=== PATIENT | male | born 1995 | race Two or more races ===

== ENCOUNTER 2017-02-07 14:37 | Emergency (ER) | payer SELFPAY ==
--- NOTE | 2017-02-07 15:05 | EDM.PDOC ---
ED HPI GENERAL MEDICAL PROBLEM - General Chief Complaint: Upper Extremity Injury/Pain Stated Complaint: RIGHT SHOULDER PAIN Time Seen by Provider: 02/07/17 15:00 Source of Information: Reports: Patient History Limitations: Reports: No Limitations - History of Present Illness INITIAL COMMENTS - FREE TEXT/NARRATIVE: HISTORY AND PHYSICAL: []21-year-old male presenting with right shoulder pain History of Present Illness: []Was lifting a pipe yesterday and felt a "pop" to his right shoulder. He did not have pain when this happened. Today when trying to get up from bed he felt the pain and was having difficulty with stiffness and moving Review of Systems: As per history of present illness and below otherwise all systems reviewed and negative. Past medical history: As per history of present illness and as reviewed below otherwise noncontributory. Surgical history: As per history of present illness and as reviewed below otherwise noncontributory. Social history: No reported history of drug or alcohol abuse. Family history: As per history of present illness and as reviewed below otherwise noncontributory. Physical exam: Alert and oriented young man who states that he feels he is getting sick this alert answering questions appropriately in full sentences no shortness of breath HEENT: Atraumatic, normocehpalic, pupils reactive, negative for conjunctival pallor or scleral icterus, mucous membranes moist, throat clear, neck supple, nontender, trachea midline. Right tympanic membrane has erythema and bulging. Throat is erythematous Lungs: Clear to auscultation, breath sounds equal bilaterally, chest non tender. Heart: S1S2, regular, negative for clicks, rubs, or JVD. Abdomen: Soft, nondistended, nontender. Negative for masses or hepatossplenmegaly. Negative for costovertebral tenderness. Pelvis: Stable nontender. Genitourinary: Deferred. Rectal: Deferred Extremities: Atraumatic, negative for cords or calf pain. Tender just lateral of the shoulder blade and corded muscle is noted in the extending across the right shoulder blade, medial portion. Tender with palpation with arm extended out to the side he raises his arm to about 100 before pain starts. With arm extended forward he can raise his arm to about 95. Positive impingement sign. Neurovascular unremarkable. Neuro: Awake, alert, oriented. Cranial nerves II through XII unremarkable. Cerebellum unremarkable. Motor and sensory unremarkable throughout. Exam nonfocal. Diagnostics: [] Therapeutics: [] Impression: [Right shoulder pain Rotator cuff impingement] Plan: [discharged to home Diclofenac 75 mg twice a day #20 no refill Flexeril 10 mg 1 3 times a day when necessary muscle spasm #21 no refill Follow-up with your primary care provider ] Definitive disposition and diagnosis as appropriate pending reevaluation and review of above. Right Shoulder Pain Score (Numeric/FACES): 9 - Related Data Allergies Allergy/AdvReac Type Severity Reaction Status Date / Time No Known Allergies Allergy Verified 02/07/17 14:53 Home Meds: Home Meds Cyclobenzaprine [Flexeril] 10 mg PO TID PRN #21 tablet 02/07/17 [Rx] Diclofenac Sodium [IMW: Diclofenac Sodium] 75 mg PO .TWICE DAILY W MEALS #20 tab.ec 02/07/17 [Rx] Review of Systems - Review of Systems Review Of Systems: ROS reveals no pertinent complaints other than HPI. ED EXAM, GENERAL - Physical Exam Exam: See Below (See dictation) Course - Vital Signs Last Recorded V/S: Last Vital Signs Temp 36.4 C 02/07/17 14:50 Pulse 93 02/07/17 14:50 Resp 12 02/07/17 14:50 BP 142/81 H 02/07/17 14:50 Pulse Ox 99 02/07/17 14:50 Departure - Departure Time of Disposition: 15:05 Disposition: Home, Self-Care 01 Condition: Good Clinical Impression: Right shoulder pain Qualifiers: Chronicity: acute Qualified Code(s): M25.511 - Pain in right shoulder Rotator cuff injury Qualifiers: Encounter type: initial encounter Laterality: right Qualified Code(s): S46.001A - Unspecified injury of muscle(s) and tendon(s) of the rotator cuff of right shoulder, initial encounter - Discharge Information Prescriptions: Cyclobenzaprine [Flexeril] 10 mg PO TID PRN #21 tablet PRN Reason: Muscle Spasm Diclofenac Sodium [IMW: Diclofenac Sodium] 75 mg PO .TWICE DAILY W MEALS #20 tab.ec Referrals: PCP,None [Primary Care Provider] -
[2017-02-07 15:32] VITALS: BP 141/86
== END 2017-02-07 15:27 | disposition home or self-care (01) ==
LOC: MW.ED 14:37
DX: S46.001A Unspecified injury of muscle(s) and tendon(s) of the rotator cuff of right shoulder, initial encounter (principal); M25.811 Other specified joint disorders, right shoulder; Z79.899 Other long term (current) drug therapy; X50.0XXA Overexertion from strenuous movement or load, initial encounter
CPT/HCPCS: 99282; 99283

== ENCOUNTER 2017-07-20 16:08 | Emergency (ER) | payer MEDICAID ==
[2017-07-20] MEDS ORDERED: Albuterol/Ipratropium 3.0-0.5 MG/3 ML Neb Soln NEB ONE (16:41)
--- NOTE | 2017-07-20 16:45 | EDM.PDOC ---
ED HPI GENERAL MEDICAL PROBLEM - General Chief Complaint: Respiratory Problem Stated Complaint: TROUBLE BREATHING/CONGESTION/COUGH Time Seen by Provider: 07/20/17 16:34 - History of Present Illness INITIAL COMMENTS - FREE TEXT/NARRATIVE: HISTORY AND PHYSICAL: History of present illness: Patient is a 22-year-old male who was been around ill contacts and has had a three-day history of harsh cough productive of some phlegm sinus congestion and drainage sore throat body aches subjective fevers and chills but no nausea vomiting or diarrhea. He did not get his influenza shot this year and he is not a smoker. He has no history of pulmonary disease. Patient has not tried much [id number] for the symptoms. Review of systems: As per history of present illness and below otherwise all systems reviewed and negative. Past medical history: As per history of present illness and as reviewed below otherwise noncontributory. Surgical history: As per history of present illness and as reviewed below otherwise noncontributory. Social history: No reported history of drug or alcohol abuse. Family history: As per history of present illness and as reviewed below otherwise noncontributory. Physical exam: Gen.: Well-developed mildly overweight man who is nontoxic and vital signs were noted by me. He has a harsh bronchitic cough on my evaluation. HEENT: Atraumatic, normocephalic, pupils reactive, negative for conjunctival pallor or scleral icterus, mucous membranes moist, throat clear but there is erythema, there is slight anterior cervical adenopathy but no nuchal rigidity, neck supple, nontender, trachea midline. Lungs: Clear to auscultation with some coarse breath sounds and rhonchi bilaterally but no wheezing stridor or work of breathing, breath sounds equal bilaterally, chest nontender. Heart: S1S2, regular rate and rhythm no overt murmurs. Abdomen: Soft, nondistended, nontender. NABS. Pelvis: Deferred Genitourinary: Deferred. Rectal: Deferred. Extremities: Atraumatic, negative for cords or calf pain. Neurovascular unremarkable. Neuro: Awake, alert, oriented. Cranial nerves II through XII unremarkable. Cerebellum unremarkable. Motor and sensory unremarkable throughout. Exam nonfocal. Diagnostics: Influenza rapid strep chest x-ray Therapeutics: Duo neb spacer and spacer teaching Impression: Acute bronchitis, pharyngitis Definitive disposition and diagnosis as appropriate pending reevaluation and review of above. general Pain Score (Numeric/FACES): 5 - Related Data Allergies Allergy/AdvReac Type Severity Reaction Status Date / Time No Known Allergies Allergy Verified 07/20/17 16:40 Home Meds: Home Meds . [No Known Home Meds] 07/20/17 [History] Past Medical History - Past Health History Medical/Surgical History: Denies Medical/Surgical History - Infectious Disease History Infectious Disease History: Reports: Chicken Pox, Mumps Social & Family History - Tobacco Use Smoking Status *Q: Never Smoker - Caffeine Use Caffeine Use: Reports: Coffee, Energy Drinks - Recreational Drug Use Recreational Drug Use: Yes Drug Use in Last 12 Months: Yes Recreational Drug Type: Reports: Marijuana/Hashish ED ROS GENERAL - Review of Systems Review Of Systems: ROS reveals no pertinent complaints other than HPI. ED EXAM, GENERAL - Physical Exam Exam: See Below (See dictation) Course - Vital Signs Last Recorded V/S: Last Vital Signs Temp 36.9 C 07/20/17 16:41 Pulse 96 07/20/17 16:41 Resp 16 07/20/17 16:41 BP 137/72 07/20/17 16:41 Pulse Ox 98 07/20/17 16:41 - Orders/Labs/Meds Orders: Active Orders 24 hr Category Date Time Status RT Aerosol Therapy [RC] ASDIRECTED Care 07/20/17 16:42 Active Chest 2V [CR] Stat Exams 07/20/17 16:41 Taken CULTURE STREP A CONFIRMATION [RM] Stat Lab 07/20/17 16:59 Results STREP SCRN A RAPID W CULT CONF [RM] Stat Lab 07/20/17 16:59 Results Meds: Medications Discontinued Medications Generic Name Dose Route Start Last Admin Trade Name Freq PRN Reason Stop Dose Admin Albuterol/Ipratropium 3 ml 07/20/17 16:41 07/20/17 16:45 Duoneb 3.0-0.5 Mg/3 Ml NEB 07/20/17 16:42 3 ml ONETIME ONE Administration Departure - Departure Time of Disposition: 17:54 Disposition: Home, Self-Care 01 Condition: Good Clinical Impression: Acute bronchitis Qualifiers: Bronchitis organism: unspecified organism Qualified Code(s): J20.9 - Acute bronchitis, unspecified - Discharge Information Referrals: PCP,None [Primary Care Provider] - Forms: ED Department Discharge Additional Instructions: The following information is given to patients seen in the emergency department who are being discharged to home. This information is to outline your options for follow-up care. We provide all patients seen in our emergency department with a follow-up referral. The need for follow-up, as well as the timing and circumstances, are variable depending upon the specifics of your emergency department visit. If you don't have a primary care physician on staff, we will provide you with a referral. We always advise you to contact your personal physician following an emergency department visit to inform them of the circumstance of the visit and for follow-up with them and/or the need for any referrals to a consulting specialist. The emergency department will also refer you to a specialist when appropriate. This referral assures that you have the opportunity for followup care with a specialist. All of these measure are taken in an effort to provide you with optimal care, which includes your followup. Under all circumstances we always encourage you to contact your private physician who remains a resource for coordinating your care. When calling for followup care, please make the office aware that this follow-up is from your recent emergency room visit. If for any reason you are refused follow-up, please contact the [facility] emergency department at and ask to speak to the emergency department charge nurse. [facility] Primary care- Internal Medicine and Family [place] [phone] Please push hydration and use all medications as prescribed. You have been given albuterol via [employer] to use with your spacer, a Medrol Dosepak and cough medicine all the [employer]. Please push hydration and rest and use over- the-counter Tylenol or ibuprofen for fevers. Please call and follow-up with one of our providers in the clinic next few days for reevaluation and further care and return to ER as needed and as discussed - My Orders Last 24 Hours: My Active Orders 07/20/17 16:41 Chest 2V [CR] Stat 07/20/17 16:42 RT Aerosol Therapy [RC] ASDIRECTED 07/20/17 16:59 CULTURE STREP A CONFIRMATION [RM] Stat STREP SCRN A RAPID W CULT CONF [] Stat - Assessment/Plan Last 24 Hours: My Active Orders 07/20/17 16:41 Chest 2V [CR] Stat 07/20/17 16:42 RT Aerosol Therapy [RC] ASDIRECTED 07/20/17 16:59 CULTURE STREP A CONFIRMATION [RM] Stat STREP SCRN A RAPID W CULT CONF [RM] Stat
[2017-07-20 19:18] VITALS: BP 134/68
--- NOTE | 2017-07-21 07:56 | CR ---
EXAM DATE: 07/20/17 PATIENT'S AGE: 22 Patient: BRITTNY CAPELLAN Facility: [place], [place] Site . Site : 1995 Study: XRay Chest [id number]/4/2018 5:09:56 PM Ordering Physician: Eunice Shea Final Report: INDICATION: Shortness of breath. Cough. COMPARISON: None. FINDINGS: PA and lateral views of the chest were obtained. The cardiac silhouette and pulmonary vasculature are within normal limits. The lungs are clear bilaterally. IMPRESSION: No evidence of acute pulmonary disease. Dictated by Mario Loyola MD @ 07/20/2017 5:44:51 PM Dictated by: Mario Loyola MD @ 07/20/2017 17:45:06 (Electronic Signature) Report Signed by Proxy. [facility] CENTERBrinda
== END 2017-07-20 18:16 | disposition home or self-care (01) ==
LOC: MW.ED 16:08
DX: J20.9 Acute bronchitis, unspecified (principal); J02.9 Acute pharyngitis, unspecified
CPT/HCPCS: 71046; 71046-26; 87081; 87804; 87880; 94640; 99283; 99284-25

== ENCOUNTER 2017-10-06 15:16 | Emergency (ER) | payer BC, MEDICAID ==
[2017-10-06] MEDS ORDERED: Ketorolac 60 MG/2 ML SDV IM ONE (15:46)
--- NOTE | 2017-10-06 16:20 | CR ---
EXAMINATION: Lumbar spine HISTORY: Pain COMPARISON: None TECHNIQUE: 3 views FINDINGS: The lumbar spinal alignment is normal. The vertebral body heights and disc spaces appear we ll-maintained. There is no fracture or acute osseous abnormality. Bone mineralization is normal. The SI joints are symmetric. IMPRESSION: No acute osseous abnormalities identified.
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
[2017-10-06 19:19] VITALS: BP 124/68
== END 2017-10-06 16:50 | disposition home or self-care (01) ==
LOC: MW.ED 15:16
DX: M62.830 Muscle spasm of back (principal); F17.210 Nicotine dependence, cigarettes, uncomplicated
CPT/HCPCS: 72100; 96372; 99283; J1885; 99282

== ENCOUNTER 2018-01-17 18:44 | Emergency (ER) | payer BC ==
[2018-01-17] MEDS ORDERED: Diphtheria,Pertussis(Acell),Tetanus Vaccine 0.5 ML Syringe IM ONE (18:46)
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
[2018-01-17] MEDS ORDERED: HYDROmorphone 1 MG/ML Syringe ONE (19:12)
[2018-01-17] MEDS ORDERED: HYDROmorphone 1 MG/ML Syringe IVPUSH ONE (19:14)
[2018-01-17 19:20] LABS: CHLORIDE,CL 105 mmol/L (98-107); SODIUM,NA 139 mmol/L (136-148)
[2018-01-17 19:45] VITALS: BP 143/95
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
== END 2018-01-17 20:20 ==
LOC: MW.ED 18:44
DX: S81.802A Unspecified open wound, left lower leg, initial encounter (principal); W34.00XA Accidental discharge from unspecified firearms or gun, initial encounter
CPT/HCPCS: 36415; 73600; 80053; 85025; 85610; 90471; 90715; 96374; 96375; 99285; G0390; J0690; J1170; J7050

== ENCOUNTER 2019-05-01 11:22 | Emergency (ER) | payer SELFPAY ==
--- NOTE | 2019-05-01 12:24 | EDM.PDOC ---
ED HPI GENERAL MEDICAL PROBLEM - General Chief Complaint: General Stated Complaint: FLU LIKE SYMPTOMS Time Seen by Provider: 05/01/19 11:23 Source of Information: Reports: Patient History Limitations: Reports: No Limitations - History of Present Illness INITIAL COMMENTS - FREE TEXT/NARRATIVE: HISTORY AND PHYSICAL: History of present illness: Patient is a 24-year-old male presents to the ED today with concern of sore throat and generalized body aches since this morning. Patient states he has been able to eat and drink but has had pain doing so. Patient states he has not taken anything for his symptoms and he denies any health history. Patient denies any other symptoms or concerns. Patient denies fever, chills, chest pain, shortness of breath, or cough. Denies headache, neck stiff ness, change in vision, syncope, or near syncope. Denies nausea, vomiting, abdominal pain, diarrhea, constipation, or dysuria. Has not noted any blood in urine or stool. Patient has been eating and drinking appropriately. Review of systems: As per history of present illness and below otherwise all systems reviewed and negative. Past medical history: As per history of present illness and as reviewed below otherwise noncontributory. Surgical history: As per history of present illness and as reviewed below otherwise noncontributory. Social history: See social history for further information Family history: As per history of present illness and as reviewed below otherwise noncontributory. Physical exam: General: Patient is alert, oriented, and in no acute distress. Patient sitting comfortably on exam table. HEENT: Atraumatic, normocephalic, pupils equal and reactive bilaterally, negative for conjunctival pallor or scleral icterus, mucous membranes moist, TMs normal bilaterally, throat clear, neck supple, nontender, trachea midline. No drooling or trismus noted. No meningeal signs. No hot potato voice noted. Lungs: Clear to auscultation, breath sounds equal bilaterally, chest nontender. Heart: S1S2, regular rate and rhythm without overt murmur Abdomen: Soft, nondistended, nontender. Negative for masses or hepatosplenomegaly. Negative for costovertebral tenderness. Pelvis: Stable nontender. Genitourinary: Deferred. Rectal: Deferred. Skin: Intact, warm, dry. No lesions or rashes noted. Extremities: Atraumatic, negative for cords or calf pain. Neurovascular unremarkable. Neuro: Awake, alert, oriented. Cranial nerves II through XII unremarkable. Cerebellum unremarkable. Motor and sensory unremarkable throughout. Exam nonfocal. Notes: Discussed the importance for follow-up with primary care provider. Voices understanding and is agreeable to plan of care. Denies any further questions or concerns at this time. Diagnostics: Influenza, strep Therapeutics: None Prescription: Tamiflu Impression: Influenza B Plan: 1. Take medication as prescribed. You can alternate ibuprofen and Tylenol as directed for pain and discomfort. 2. Follow-up with your primary care provider as discussed. Return to the ED as needed and as discussed. Definitive disposition and diagnosis as appropriate pending reevaluation and review of above. Body Aches Pain Score (Numeric/FACES): 5 - Related Data Allergies Allergy/AdvReac Type Severity Reaction Status Date / Time No Known Allergies Allergy Verified 05/01/19 11:35 Home Meds: Home Meds . [No Known Home Meds] 07/20/17 [History] Past Medical History - Past Health History Medical/Surgical History: Denies Medical/Surgical History HEENT History: Reports: None Cardiovascular History: Reports: None Respiratory History: Reports: None Gastrointestinal History: Reports: None Genitourinary History: Reports: None Musculoskeletal History: Reports: None Neurological History: Reports: None Psychiatric History: Reports: None Endocrine/Metabolic History: Reports: None Hematologic History: Reports: None Immunologic History: Reports: None Oncologic (Cancer) History: Reports: None Dermatologic History: Reports: None - Infectious Disease History Infectious Disease History: Reports: Chicken Pox, Other (See Below) Other Infectious Disease History: childhood - Past Surgical History Head Surgeries/Procedures: Reports: None HEENT Surgical History: Reports: None Cardiovascular Surgical History: Reports: None Respiratory Surgical History: Reports: None GI Surgical History: Reports: None Male Surgical History: Reports: None Endocrine Surgical History: Reports: None Neurological Surgical History: Reports: None Musculoskeletal Surgical History: Reports: Other (See Below) Other Musculoskeletal Surgeries/Procedures:: tibia surgery Oncologic Surgical History: Reports: None Dermatological Surgical History: Reports: None Social & Family History - Family History Family Medical History: Noncontributory - Tobacco Use Smoking Status *Q: Current Every Day Smoker Years of Tobacco use: 1 Packs/Tins Daily: 1 - Caffeine Use Caffeine Use: Reports: Coffee, Energy Drinks, Soda - Recreational Drug Use Recreational Drug Use: Yes Recreational Drug Type: Reports: Marijuana/Hashish Recreational Drug Use Frequency: Monthly ED ROS GENERAL - Review of Systems Review Of Systems: Comprehensive ROS is negative, except as noted in HPI. ED EXAM, GENERAL - Physical Exam Exam: See Below (see dictation) Course - Vital Signs Last Recorded V/S: Last Vital Signs Temp 98.0 F 05/01/19 11:33 Pulse 106 H 05/01/19 11:33 Resp 18 05/01/19 11:33 BP 128/80 05/01/19 11:33 Pulse Ox 98 05/01/19 11:33 - Orders/Labs/Meds Orders: Active Orders 24 hr Category Date Time Status CULTURE STREP A CONFIRMATION [] Stat Lab 05/01/19 11:46 Results STREP SCRN A RAPID W CULT CONF [RM] Stat Lab 05/01/19 11:46 Results Departure - Departure Time of Disposition: 12:23 Disposition: Home, Self-Care 01 Clinical Impression: Influenza B - Discharge Information Referrals: PCP,None [Primary Care Provider] - Additional Instructions: The following information is given to patients seen in the emergency department who are being discharged to home. This information is to outline your options for follow-up care. We provide all patients seen in our emergency department with a follow-up referral. The need for follow-up, as well as the timing and circumstances, are variable depending upon the specifics of your emergency department visit. If you don't have a primary care physician on staff, we will provide you with a referral. We always advise you to contact your personal physician following an emergency department visit to inform them of the circumstance of the visit and for follow-up with them and/or the need for any referrals to a consulting specialist. The emergency department will also refer you to a specialist when appropriate. This referral assures that you have the opportunity for follow-up care with a specialist. All of these measure are taken in an effort to provide you with optimal care, which includes your follow-up. Under all circumstances we always encourage you to contact your private physician who remains a resource for coordinating your care. When calling for follow-up care, please make the office aware that this follow-up is from your recent emergency room visit. If for any reason you are refused follow-up, please contact the [facility] Emergency Department at and asked to speak to the emergency department charge nurse. SHILA [facility] [address] [place] [address] [facility] [address] [place] [address] 1. Take medication as prescribed. You can alternate ibuprofen and Tylenol as directed for pain and discomfort. 2. Follow-up with your primary care provider as discussed. Return to the ED as needed and as discussed. Sepsis Event Note - Evaluation Sepsis Screening Result: No Definite Risk - Focused Exam Vital Signs: Vital Signs Temp Pulse Resp BP Pulse Ox 05/01/19 11:33 98.0 F 106 H 18 128/80 98 Date Exam was Performed: 05/01/19 Time Exam was Performed: 12:21 - My Orders Last 24 Hours: My Active Orders 05/01/19 11:46 CULTURE STREP A CONFIRMATION [RM] Stat STREP SCRN A RAPID W CULT CONF [RM] Stat - Assessment/Plan Last 24 Hours: My Active Orders 05/01/19 11:46 CULTURE STREP A CONFIRMATION [RM] Stat STREP SCRN A RAPID W CULT CONF [RM] Stat
[2019-05-01 12:40] VITALS: BP 113/59; PULSE 98
== END 2019-05-01 12:41 | disposition home or self-care (01) ==
LOC: MW.ED 11:22
DX: J10.1 Influenza due to other identified influenza virus with other respiratory manifestations (principal); F17.210 Nicotine dependence, cigarettes, uncomplicated
CPT/HCPCS: 87081; 87804; 87880-QW; 99283